=== PATIENT | male | born 1990 | race Caucasian/White ===

== ENCOUNTER 2018-01-04 18:23 | Emergency (ER) | payer SELFPAY ==
[2018-01-04] MEDS ORDERED: Lidocaine 1% INJ* 10 MG/ML 30 ML SDV INJ ONE (20:14)
[2018-01-04] MEDS ORDERED: Lidocaine 1%* 5 ML VIAL ONE (20:16)
--- NOTE | 2018-01-04 20:18 | ED ---
Laceration/Wound HPI - HPI Summary HPI Summary: 27-year-old male presents with right index finger laceration today. He states a candle broke and the glass cut his right index finger. He denies any numbness or tingling. He has full ROM of his finger. He doesn't know when his last tetanus was. He denies any other injury. He denies a foreign body. The area continues to actively bleed. He has no medical conditions. He is right handed. He works at [employer]. - History of Current Complaint Stated Complaint: POINTER FINGER RT HAND LAC Time Seen by Provider: 01/04/18 19:41 Pain Intensity: 3 - Allergy/Home Medications Allergies/Adverse Reactions: Allergies Allergy/AdvReac Type Severity Reaction Status Date / Time No Known Allergies Allergy Verified 08/20/13 09:07 PMH/Surg Hx/FS Hx/Imm Hx Endocrine/Hematology History: Denies: Hx Diabetes, Hx Thyroid Disease Cardiovascular History: Denies: Hx Hypercholesterolemia, Hx Hypertension, Hx Peripheral Vascular Disease Respiratory History: Denies: Hx Asthma, Hx Chronic Obstructive Pulmonary Disease (COPD) GI History: Denies: Hx Ulcer Musculoskeletal History: Denies: Hx Arthritis, Hx Osteoporosis Sensory History: Denies: Hx Cataracts, Hx Contacts or Glasses, Hx Glaucoma Opthamlomology History: Denies: Hx Cataracts, Hx Contacts or Glasses, Hx Glaucoma Neurological History: Denies: Hx Headaches, Hx Seizures, Hx Transient Ischemic Attacks (TIA) Psychiatric History: Denies: Hx Anxiety, Hx Depression Infectious Disease History: No Infectious Disease History: Denies: Hx Hepatitis, Hx Human Immunodeficiency Virus (HIV), Traveled Outside the [place] in Last 30 Days - Family History Known Family History: Negative: Diabetes - Social History Substance Use Type: Reports: None Review of Systems Negative: Fever Negative: Chest Pain Negative: Shortness Of Breath Positive: Other - right index finger laceration All Other Systems Reviewed And Are Negative: Yes Physical Exam Triage Information Reviewed: Yes Vital Signs On Initial Exam: Initial Vitals Temp Pulse Resp BP Pulse Ox 97.8 F 83 18 144/98 100 01/04/18 18:25 01/04/18 18:25 01/04/18 18:25 01/04/18 18:25 01/04/18 18:25 Vital Signs Reviewed: Yes Appearance: Positive: Well-Appearing Skin: Positive: Warm, Dry, Other - 1cm flap like laceration of pip right index finger Head/Face: Positive: Normal Head/Face Inspection Eyes: Positive: Normal, Conjunctiva Clear Respiratory/Lung Sounds: Positive: Clear to Auscultation, Breath Sounds Present Cardiovascular: Positive: Normal, RRR Musculoskeletal: Positive: Strength/ROM Intact - right hand, Other - capillary refill<2 secs, sensation grossly intact Neurological: Positive: Normal Psychiatric: Positive: Normal Procedures - Laceration/Wound Repair 1 Location: Other - right index finger Description: Irregular Anesthesia: Digital, 1.0% Length, Depth and Shape: 1cm flap like Betadine Prep?: Yes Irrigated w/ Saline (ccs): 100 Laceration/Wound Explored: no foreign body removed Closure: Single Layer Number of Sutures: 3 Layer Closure?: No Sterile Dressing Applied?: Yes - telfa, coband, metal finger splint Diagnostics - Vital Signs Vital Signs Temp Pulse Resp BP Pulse Ox 01/04/18 18:25 97.8 F 83 18 144/98 100 - Laboratory Lab Statement: Any lab studies that have been ordered have been reviewed, and results considered in the medical decision making process. Laceration Repair Course/Dx - Course Course Of Treatment: 27-year-old male presents with right index finger laceration today. He states a candle broke and the glass cut his right index finger. He denies any numbness or tingling. He has full ROM of his finger. He doesn't know when his last tetanus was. He denies any other injury. He denies a foreign body. The area continues to actively bleed. He has no medical conditions. He is right handed. On exam has a 1 cm laceration on the PIP of right index finger. cleaned and Closed laceration with [address] in finger splint. Patient understands and agrees with plan. - Differential Dx Differental Diagnoses: Abrasion, Avulsion, Laceration - Clinical Impression Provider Diagnoses: Finger laceration Discharge - Discharge Plan Condition: Good Disposition: HOME Patient Education Materials: Care For Your Stitches (ED) Referrals: Jorge Luis Nichole MD [Primary Care Provider] - Additional Instructions: Keep area in splint for 5 days, change dressing once a day Keep area clean and dry for 24 hours Take Tylenol or ibuprofen for pain every 6 hours Return to ED or primary for suture removal in 10-14 days Return to ED if develop signs of infection such as fever, spreading redness, or pus formation
[2018-01-04] MEDS ORDERED: Tetan/Diph/Pertus SYR(Tdap)* 0.5 ML SYR(BOOSTRIX) use SYR IM ONE (21:17)
[2018-01-04 21:34] VITALS: BP 123/84
== END 2018-01-04 21:33 | disposition home or self-care (01) ==
LOC: ED 18:23
DX: S61.210A Laceration without foreign body of right index finger without damage to nail, initial encounter (principal); W25.XXXA Contact with sharp glass, initial encounter; Y92.9 Unspecified place or not applicable
CPT/HCPCS: 12001; 90471; 90715; 99281